=== PATIENT | male | born 1975 | race Hispanic/Latino ===

== ENCOUNTER 2021-09-02 11:11 | Emergency (ER) | payer SELFPAY ==
[~2021-09-02] VITALS: Ht 167.6 cm; Wt 72.6 kg
[2021-09-02] MEDS ORDERED: HYDROCODONE/APAP 5MG-325MG TAB PO PRN (11:30)
[2021-09-02 11:33] LABS: BASOPHILS % 0.3 % (0.0-1.0); EOSINOPHILS # (AUTO) 0.2 (0.0-0.4); EOSINOPHILS % 1.8 % (0.0-6.0); HEMATOCRIT 45.2 % (38.2-49.6); HEMOGLOBIN 15.2 g/dL (14.0-18.0); LYMPHOCYTES # (AUTO) 1.4 (1.0-3.2); LYMPHOCYTES % 11.9 % (18.0-39.1); MEAN CORPUSCULAR HEMOGLOBIN 30.8 pg (28-32); MEAN CORPUSCULAR HGB CONC 33.6 g/dL (31-35); MEAN CORPUSCULAR VOLUME 91.7 fL (81-99); MONOCYTES # (AUTO) 0.8 (0.2-0.8); MONOCYTES % 6.4 % (4.4-11.3); NEUTROPHILS # (AUTO) 9.5 (2.1-6.9); NEUTROPHILS % 79.3 % (38.7-80.0); PLATELET COUNT 453 x10e3/uL (140-360); RED BLOOD COUNT 4.93 x10e6/uL (4.3-5.7); RED CELL DISTRIBUTION WIDTH 11.8 % (11.7-14.4)
[2021-09-02 11:51] LABS: ALBUMIN 3.7 g/dL (3.5-5.0); ALBUMIN/GLOBULIN RATIO 1.1 (0.8-2.0); ANION GAP 13.9 mmol/L (8-16); CREATININE, SERUM 0.93 mg/dL (0.72-1.25); POTASSIUM 3.9 mmol/L (3.5-5.1)
[2021-09-02] MEDS ORDERED: Vancomycin IV 1 GM in SODIUM CHLORIDE 0.9% 250ML 250 ML IV SCH (12:00)
[2021-09-02] MEDS ORDERED: IOPAMIDOL 370 MG/ML 100 ML INFUS..BTL INJ ONE (12:28)
[2021-09-02] MEDS ORDERED: IBUPROFEN 600 MG TAB PO STA (13:30)
[2021-09-02] MEDS ORDERED: AMOXICILLIN/CLAVULANATE K 500 MG TAB PO ONE (13:30)
[2021-09-02] MEDS ORDERED: AUGMENTIN 500-1 EACH PO (14:10)
[2021-09-02] MEDS ORDERED: IBUPROFEN600 MG PO (14:10)
[2021-09-02] MEDS ORDERED: ACETAMINOPHEN-1 EAC4 PO (14:10)
[2021-09-02 14:22] VITALS: BP 116/82
[2021-09-02] MEDS ORDERED: OFLOXACIN 0.3% (OTIC SOL) 5 ML BTL OT SCH (17:00)
== END 2021-09-02 14:23 | disposition home or self-care (01) ==
LOC: ER 11:16
DX: H60.91 Unspecified otitis externa, right ear (principal)
CPT/HCPCS: 0223U; 36415; 70487; 80053; 82948; 85025; 87071; 87205; 99284; J2543; J3370; J7050; Q9967